=== PATIENT | female | born 1985 | race Caucasian/White ===

== ENCOUNTER 2024-11-10 08:00 | Outpatient (CLI) | payer BC, SELFPAY | END 2024-11-10 08:01 | disposition home or self-care (01) | LOC: NFLDREF 11-15 03:56 | PROVIDERS: PCP Registered Nurse; Referring Provider Family Medicine; Visit Provider Registered Nurse | DX: Z13.228 Encounter for screening for other metabolic disorders (principal); Z13.220 Encounter for screening for lipoid disorders; Z13.29 Encounter for screening for other suspected endocrine disorder | CPT/HCPCS: 80053; 80061; 84443 ==